=== PATIENT | male | born 2000 | race Caucasian/White ===

== ENCOUNTER → 2025-06-20 07:55 | Outpatient (REF) | payer OTHER, SELFPAY | LOC: RAD 07:55 | PROVIDERS: ATTENDING PHYSICIAN Internal Medicine Gastroenterology; FAMILY PHYSICIAN Internal Medicine | DX: R19.04 Left lower quadrant abdominal swelling, mass and lump (principal) | CPT/HCPCS: 74177; Q9967 ==

== ENCOUNTER 2025-07-16 06:22 | Day surgery (SDC) | payer OTHER, SELFPAY | END 2025-07-16 15:33 | disposition home or self-care (01) | LOC: GI 06:22 | PROVIDERS: ATTENDING PHYSICIAN Internal Medicine Gastroenterology | DX: R19.4 Change in bowel habit (principal); K64.8 Other hemorrhoids; K63.89 Other specified diseases of intestine | CPT/HCPCS: 45380; 88305 ==